=== PATIENT | female | born 1980 | race Two or more races ===

== ENCOUNTER 2020-12-14 16:15 | Emergency (ER) | payer MEDICAID, OTHER ==
[~2020-12-14] VITALS: Ht 172.7 cm; Wt 61.2 kg
[2020-12-14] MEDS ORDERED: HYDROcodone-ACET 10/325MG TAB PO ONE (19:00)
[2020-12-14] MEDS ORDERED: ONDANSETRON ODT 4 MG TAB PO ONE (19:00)
[2020-12-14 19:20] VITALS: BP 133/65
== END 2020-12-14 20:49 | disposition home or self-care (01) ==
LOC: ER 16:15
DX: M76.62 Achilles tendinitis, left leg (principal); W55.03XA Scratched by cat, initial encounter; Y93.89 Activity, other specified; Y92.89 Other specified places as the place of occurrence of the external cause; Y99.8 Other external cause status
CPT/HCPCS: 73610; 73630; 99284; Q0162